=== PATIENT | female | born 1980 | race Caucasian/White ===

== ENCOUNTER 2019-11-12 06:06 | Inpatient (IN) ==
[2019-11-12] MEDS ORDERED: TORADOL IV ONE (06:24)
[2019-11-12 06:47] LABS: URINE SOURCE CLEAN CATCH
[2019-11-12] MEDS ORDERED: ZOFRAN IV ONE (06:51)
[2019-11-12 07:00] LABS: BASO# 0.04 X1000 (0.0-0.2); BASO% 0.2 % (0.0-0.8); EOS# 0.24 X1000 (0.0-0.7); EOS% 1.4 % (0.0-10.0); HEMATOCRIT 39.5 % (37.0-47.0); HEMOGLOBIN 12.9 g/dL (12.0-16.0); IMM GRAN# 0.05 X1000 (0.0-0.04); IMM GRAN% 0.3 % (0.0-0.5); LYMPH# 3.05 X1000 (1.2-3.4); LYMPH% 18.4 % (20.5-51.1); MCH 28.6 PG (27-31); MCHC 32.7 g/dL (33-37); MCV 87.6 FL (81-99); MONO# 1.28 X1000 (0.11-0.59); MONO% 7.7 % (1.7-9.3); MPV 9.7 FL (7.4-10.4); NEUT# 11.93 X1000 (1.4-6.5); PLT 458 X1000 (130-400); RBC 4.51 XMIL (4.2-5.4); RDW 12.6 % (11.5-14.5); WBC 16.59 X1000 (4.8-10.8)
[2019-11-12 07:09] LABS: BILIRUBIN URINE NEGATIVE (NEGATIVE); BLOOD URINE NEGATIVE (NEGATIVE); COLOR YELLOW; GLUCOSE URINE NEGATIVE (NEGATIVE); KETONE URINE NEGATIVE (NEGATIVE); LEUKOCYTES URINE NEGATIVE (NEGATIVE); NITRITE URINE NEGATIVE (NEGATIVE); PROTEIN URINE NEGATIVE (NEGATIVE); SP GRAVITY URINE 1.018; TURBIDITY URINE CLEAR (CLEAR); UR EPITHELIAL CELLS <10 /HPF (<10); URINE BACTERIA NEGATIVE /HPF; URINE RBC <10 /HPF (<10); URINE WBC <10 /HPF (<10); UROBILINOGEN URINE NORMAL (NORMAL)
[2019-11-12 07:10] LABS: AGAP 15; ALBUMIN 4.6 g/dL (3.5-5.0); ALKALINE PHOSPHATASE 88 U/L (32-104); BUN 9 mg/dL (8-22); CALCIUM 9.3 mg/dL (8.8-10.2); CHLORIDE 102 mmol/L (98-107); COSMO 278; CREATININE 0.7 mg/dL (0.5-0.9); ESTIMATED GFR > 60; GLUCOSE 123 mg/dL (70-104); GOT 10 U/L (10-30); GPT 14 U/L (10-36); POTASSIUM 4.4 mmol/L (3.5-5.1); SODIUM 139 mmol/L (136-145); TCO2 22 mmol/L (25-35); TOTAL PROTEIN 7.4 g/dL (6.3-8.3)
[2019-11-12] MEDS ORDERED: MORPHINE IV ONE (07:49)
--- NOTE | 2019-11-12 07:54 | PROVIDER DOCUMENTATION ---
HPI-Abdominal Pain/GI Problem - General Chief Complaint: Flank Pain Stated Complaint: FLANK PAIN RIGHT SIDE Time Seen by Provider: 11/12/19 07:40 Allergies/Adverse Reactions: Patient Allergies Allergy/AdvReac Type Severity Reaction Status Date / Time No Known Allergies Allergy Verified 06/13/18 13:16 Home Medications: Home Medication List Medication Instructions Recorded Confirmed Last Taken Type Oxycodone HCl/Acetaminophen 10 tab PO TID 06/13/18 11/12/19 Unknown History [Oxycodone-Acetaminophen 10-325] Polyethylene Glycol 3350 [Miralax] 17 gm PO DAILY #90 powd.pack 06/13/18 11/12/19 Unknown Rx Tramadol [Ultram] 50 mg PO DAILY 06/13/18 11/12/19 Unknown History Gabapentin 300 mg PO DAILY 11/12/19 11/12/19 Unknown History Tizanidine HCl [Zanaflex] 2 mg PO BID 11/12/19 11/12/19 Unknown History - History of Present Illness-ABD Nature of Presenting Problems: began with a midsternal pain 3 days ago, thought was constipated, took mag citrate, felt some better, had liquid BM. This repeated the next day. Occurred again this am, no relief with mag citrate, felt worse, also had sharp R abd pain. No fever. Has had nausea, no vomiting. Nothig else makes better, worse Review of Systems - Adult - REVIEW OF SYSTEMS - ADULT Constitutional: reports: no symptoms reported Eyes: reports: no symptoms reported Ears, Nose, Mouth & Throat: reports: no symptoms reported Cardiovascular: reports: no symptoms reported Respiratory: reports: no symptoms reported Gastrointestinal: reports: see HPI Genitourinary: reports: see HPI Musculoskeletal: reports: no symptoms reported Integumentary: reports: no symptoms reported Neurological: reports: no symptoms reported Psychiatric: reports: no symptoms reported Endocrine: reports: no symptoms reported Hematologic/Lymphatic: reports: no symptoms reported Allergic/Immunologic: reports: no symptoms reported Past History - Adult - PAST MEDICAL HISTORY-ADULT Review of Records: reports: Medications Reviewed Major Childhood Illnesses: reports: denies history Cardiovascular: reports: denies history Respiratory: reports: denies history Gastrointestinal: reports: denies history Obstetrical/Gynecological: reports: denies history Genitourinary: reports: denies history Musculoskeletal: reports: chronic pain, neck/back injury Neurological: reports: denies history Endocrine/Immune: reports: denies history Other Conditions: reports: denies history - PRIOR SURGERIES/PROCEDURES Surgical/Procedure History: reports: , other (nerve block) - IMMUNIZATION STATUS Childhood Immunizations: See Nurse Assessment Flu Vaccine: See Nurse Assessment - FAMILY HISTORY Family History: reviewed, not pertinent Physical Exam-General - PHYSICAL EXAM-ADULT Initial Vital Signs Reviewed: Yes - CONSTITUTIONAL General Appearance: alert, moderate distress - EYES Eyes: PERRL/EOMI, pink conjunctivae - HEAD, EARS, NOSE, MOUTH & THROAT HENMT: normocephalic/atraumatic, moist mucous membranes, normal ENT inspection, pharynx normal - NECK Neck: non-tender, full range of motion, supple, normal inspection - RESPIRATORY Respiratory: chest non-tender, lungs clear, normal breath sounds, no pleuratic chest pain, no respiratory distress, no accessory muscle use - CARDIOVASCULAR Cardiovascular: regular rate, rhythm, no edema, no gallop, no murmur - GASTROINTESTINAL (ABDOMEN) Abdominal Exam: soft, tenderness (sv to epigastrum, mod to RUQ. BS are hyperactive) - MUSCULOSKELETAL Back Exam: normal inspection, no CVA tenderness, no vertebral tenderness Extremity: normal range of motion, non-tender, normal gait, normal inspection, no pedal edema - SKIN Integumentary: normal color, normal turgor, warm/dry - NEUROLOGIC Neurologic: postal delivery officer II-XII nml as tested, grossly normal, no motor/sensory deficits - PSYCHIATRIC Psych/Mental Status: normal mood/affect, normal thought content, normal thought process, oriented x 3 Progress - PLAN OF CARE/RESULTS Progress/Plan/Lab Results: Vital Signs - 8 hr 11/12/19 06:12 Temperature 97.6 F Pulse Rate 86 Respiratory Rate 20 Blood Pressure 127/84 O2 Sat by Pulse Oximetry 97 Bedside Urine ED: Urine Bedside Start: 11/12/19 06:10 Freq: NOW Status: Active Protocol: Activity Type Activity Date Activity User E-Sign Co-Sign Detail Recorded Client Recorded Date Recorded By Document 11/12/19 06:41 [id number] 11/12/19 06:42 [id number] 11/12/19 06:41 Point of Care [Bedside Point of Care] -Lot # [id number] - Results Negative -Control Line Visible? Yes Laboratory Results - last 24 hr 11/12/19 11/12/19 11/12/19 06:26 06:39 06:39 WBC 16.59 H RBC 4.51 Hgb 12.9 Hct 39.5 MCV 87.6 MCH 28.6 MCHC 32.7 L RDW Std Deviation 12.6 Plt Count 458 H MPV 9.7 Immature Gran % (Auto) 0.3 Neut % (Auto) 72.0 Lymph % (Auto) 18.4 L Casey % (Auto) 7.7 Eos % (Auto) 1.4 Baso % (Auto) 0.2 Immature Gran # (Auto) 0.05 H Neut # (Auto) 11.93 H Lymph # (Auto) 3.05 Casey # (Auto) 1.28 H Eos # (Auto) 0.24 Baso # (Auto) 0.04 Sodium 139 Potassium 4.4 Chloride 102 Carbon Dioxide 22 L Anion Gap 15 BUN 9 Creatinine 0.7 Estimated GFR/1.73 m2 > 60 BUN/Creatinine Ratio 13 Glucose 123 H Calculated Osmolality 278 Calcium 9.3 Total Bilirubin 0.40 AST 10 ALT 14 Alkaline Phosphatase 88 Total Protein 7.4 Albumin 4.6 Globulin 3.0 Albumin/Globulin Ratio 2.0 Urine Source CLEAN CATCH Urine Color YELLOW Urine Turbidity CLEAR Urine pH 7.0 Ur Specific [place] 1.018 Urine Protein NEGATIVE Ur Glucose (Stick) NEGATIVE Ur Ketones (Stick) NEGATIVE Urine Blood NEGATIVE Urine Nitrite NEGATIVE Urine Bilirubin NEGATIVE Urobilinogen Dipstick NORMAL Urine Leukocytes NEGATIVE Urine WBC (Auto) <10 Urine RBC (Auto) <10 U Epithel Cells (Auto) <10 Urine Bacteria (Auto) NEGATIVE Orders Category Date Time Status Urine Preg [ED: Urine Bedside] NOW Care 11/12/19 06:[address] ABD/PELVIS W/IV CONT ONLY [CT] Stat Exams 11/12/19 07:48 Ordered flat [FLAT/UPRIGHT ABD/1 VIEW CHEST] [RAD] Stat Exams 11/12/19 07:44 Ordered AMYLASE [CHEM] Stat Lab 11/12/19 07:48 Uncollected CBC WITH ELECTRONIC DIFF [HEME] Stat Lab 11/12/19 06:39 Completed CMP [COMPREHENSIVE METABOLIC PANEL] [CHEM] Stat Lab 11/12/19 06:39 Completed LIPASE [CHEM] Stat Lab 11/12/19 07:48 Uncollected URINALYSIS W/POSS RFLX CULT [URINALYSIS] Stat Lab 11/12/19 06:26 Completed Ketorolac [Toradol] Med 11/12/19 06:24 Discontinued 30 mg IV NOW ONE Morphine Med 11/12/19 07:49 Once 4 mg IV NOW ONE Ondansetron [Zofran] Med 11/12/19 06:51 Discontinued 4 mg IV NOW ONE Result Diagrams: 11/12/19 06:39 11/12/19 06:39 - CONSULTS/PCP/HOSPITALIST Notification #1 *Consult/PCP/Hospitalist*: Hayder Time Discussed: 09:30 (was told that he was in surgery, could not call back until afternoon. Then was told would put a note where he might see it between cases. Video Game Designer called, said all she could do was tell him between ca ses) #2 Consult: Hayder Time Discussed: 11:40 Consult Disposition: Admit Departure - Departure Date of Disposition Decision: 11/12/19 Time of Disposition Decision: 09:35 DIAGNOSIS: Acute cholecystitis Disposition: ADMITTED INPATIENT 09 Certified Medical Emergency: Emergent Condition: Good Additional Instructions: ED Follow Up Instructions: You have been treated by a care provider in the Emergency Department. These instructions are being provided to you so you can have an understanding of how to care for yourself upon discharge. Upon discharge from the Emergency Department, you are responsible for making arrangements for follow-up care by a physician of your choice. Take all prescribed medications as directed. Return to the Emergency Department immediately for any new or worsening symptoms. You may call the Physician Referral phone number at [phone] to obtain a list of Physicians who are taking new patients. Referrals and Follow-Ups: Megan Lemus MD [Primary Care Provider] - - Critical Care Note This patient required my direct & personal management of CC.: No Attestation - Physician/ KEITH Attestation Patient care was provided by Advanced Practice Provider:: No The physician spent face to face time with patient:: Yes Advanced Practice Provider documentation review:: Supervising physician onsite and consulted in the evaluation and care of this patient. The physician did have a face to face encounter with the patient.
[2019-11-12 08:11] LABS: AMYLASE 42 U/L (20-200); LIPASE 20 U/L (13-60)
--- NOTE | 2019-11-12 09:05 | Diag Imaging Result Doc PS360 ---
EXAM: CT ABD/PELVIS W/IV CONT ONLY HISTORY: epigastric pain TECHNIQUE: This exam was performed using automated exposure control, adjustment of mA or kV according to patient size, and/or use of iterative reconstruction technique. COMPARISON: None. FINDINGS: Lung bases: Unremarkable. Hepatobiliary: There is gallbladder wall thickening and/or pericholecystic inflammatory change suspicious for cholecystitis. Gallbladder ultrasound recommended. Normal liver attenuation. No intrahepatic or extrahepatic biliary ductal dilatation is identified.. There is an enlarged right lobe of the liver versus a Tory's lobe, normal variant, measuring 24 cm craniocaudad dimension . No suspicious masses are appreciated. Pancreas/Adrenal glands/Spleen: Normal size and enhancement. No cysts or solid masses are appreciated. Kidneys: No nephrolithiasis or hydronephrosis is appreciated. Normal bilateral enhancement. No suspicious masses. Retroperitoneum: Normal caliber aorta. No lymphadenopathy. Bowel/Mesentery: Normal caliber small and large bowel loops. No evidence for obstruction. . No mesenteric lymphadenopathy is appreciated. Appendix: Normal. No evidence for acute appendicitis. Pelvis: Reproductive organs show no acute abnormality. Urinary bladder is unremarkable. No acute bony abnormality is demonstrated. IMPRESSION: Gallbladder wall thickening and/or pericholecystic fluid. Suspect cholecystitis. Recommend gallbladder ultrasound. Hepatomegaly versus prominent Tory's lobe of the liver. Electronically signed by Ivette Martínez 11/12/2019 9:03 AM
[2019-11-12] MEDS ORDERED: ZOSYN 3.375 GM in NS 50 ML IV ONE (09:35)
[2019-11-12] MEDS ORDERED: SENSORCAINE 0.5%-EPI 1:200,000 ONE (14:37)
[2019-11-12] MEDS ORDERED: LR 1,000 ML ONE ×2 (14:37→18:29)
[2019-11-12] MEDS ORDERED: SODIUM CHLORIDE 0.9% ONE (14:37)
--- NOTE | 2019-11-12 15:42 | HISTORY AND PHYSICAL ---
HISTORY OF PRESENT ILLNESS: Ms Melina Miller is a 38-year-old white female who has a three-day history of epigastric and right upper quadrant pain. She presented to [facility] Emergency Department today with these symptoms and a CT scan was performed which suggested acute cholecystitis, as did her exam. She was transferred from [facility] to [facility] for further treatment. PAST MEDICAL HISTORY: She has had three C sections. She has had a tubal ligation. She has chronic lower back and right hip pain. MEDICATIONS: She is on opioids for chronic back and hip pain. ALLERGIES: No known drug allergies. SOCIAL HISTORY: She works at [email or web address]. FAMILY HISTORY: Family history was reviewed and was noncontributory. REVIEW OF SYSTEMS: A 14-point review of systems was performed and was essentially negative except for the History of Present Illness. PHYSICAL EXAMINATION: GENERAL: Ms. Miller is a middle-aged white female with tattoos. She is in no acute distress but has obvious abdominal discomfort. HEENT: She has no jaundice. No oral lesions. NECK: No cervical or supraclavicular lymphadenopathy. HEART: Has regular rate. LUNGS: Clear. There is no work of breathing. ABDOMEN: Soft. She had no evidence of hernia. She was tender in the right upper quadrant. I could not palpate her gallbladder. She had no costovertebral tenderness. RECTAL AND VAGINAL: Exams were not performed. EXTREMITIES: She does have palpable peripheral pulses. No peripheral edema. NEUROLOGIC: She is alert and oriented x3 and appropriate. IMAGING: A CT scan was reviewed and has inflammation around her gallbladder. It was felt that she had acute cholecystitis. IMPRESSION: Acute cholecystitis. PLAN: Laparoscopic, possible open cholecystectomy, this afternoon. I have discussed the procedure in detail with her at the bedside including risks of bleeding, infection, injury to the extrahepatic bile ducts requiring reoperation, conversion of laparoscopic to open cholecystectomy, bile leak requiring reoperation for drainage, and injury to intra-abdominal contents for trocar placement. She understands the need for surgery and its risks and she wants to proceed. cc: Kiley Singletary MD
[2019-11-12] MEDS ORDERED: DIPRIVAN 1% ONE ×2 (15:58)
[2019-11-12] MEDS ORDERED: XYLOCAINE-MPF 2% ONE ×4 (15:58→16:02)
[2019-11-12] MEDS ORDERED: ZEMURON ONE ×4 (15:59→16:02)
[2019-11-12] MEDS ORDERED: QUELICIN (DOSE) ONE ×2 (15:59)
[2019-11-12] MEDS ORDERED: VERSED ONE ×2 (16:05)
[2019-11-12] MEDS ORDERED: KEFZOL 1 GM/D5W 2 GM/100 ML IVPB ONE (16:38)
[2019-11-12] MEDS ORDERED: FENTANYL ONE (16:53)
[2019-11-12] MEDS ORDERED: ZOFRAN ONE (17:17)
[2019-11-12] MEDS ORDERED: DECADRON ONE (17:17)
[2019-11-12] MEDS ORDERED: BRIDION ONE (17:36)
[2019-11-12] MEDS ORDERED: TORADOL ONE (17:40)
[2019-11-12] MEDS ORDERED: ROBINUL ONE (17:55)
[2019-11-12] MEDS ORDERED: NEOSTIGMINE ONE (17:55)
--- NOTE | 2019-11-12 17:59 | Diag Imaging Result Doc PS360 ---
EXAM: OPERATIVE CHOLANGIOGRAM 11/12/2019 HISTORY: CHOLECYSTITIS TECHNIQUE: Intraoperative cholangiogram COMMENT: The intra and extrahepatic bile ducts appear distended. Contrast is seen entering the duodenum. There may be a filling defect at the confluence of the left and right ducts just above the cystic duct. IMPRESSION: Stone versus air bubble in the common hepatic duct distally. No evidence of obstruction of the common bile duct. Electronically signed by Lobito Alaniz 11/12/2019 5:57 PM
[2019-11-12] MEDS: DILAUDID ONE ×2 (18:29→18:32)
[2019-11-12] MEDS ORDERED: NORCO-10 PO PRN (19:55)
[2019-11-12] MEDS ORDERED: PHENERGAN IV PRN (19:56)
[2019-11-12] MEDS ORDERED: SODIUM CHLORIDE 0.9% INJ PRN (20:00)
--- NOTE | 2019-11-12 20:22 | OPERATIVE NOTE ---
PROCEDURE DATE: 11/12/2019 PREOPERATIVE DIAGNOSIS: Acute cholecystitis with cholelithiasis. POSTOPERATIVE DIAGNOSIS: Acute cholecystitis with cholelithiasis. PRINCIPAL PROCEDURE: Laparoscopic cholecystectomy with intraoperative cholangiogram. SURGEON: Kiley Singletary MD. ANESTHESIA: General. ESTIMATED BLOOD LOSS: 75 to 100 mL. DRAINS: None. INDICATIONS: Ms. Melina Miller is a 38-year-old white female who initially presented to [facility] with a 3-day history of epigastric and right upper quadrant pain. A CT scan suggested acute cholecystitis as did her exam and cholecystectomy was recommended. FINDINGS: The gallbladder was tightly distended and inflamed. It had black bile within it. The liver appeared to be healthy. We did do an intraoperative cholangiogram, which showed some dilatation of the extrahepatic bile ducts but there was no evidence of extrahepatic stone and the dye went into the duodenum easily. No other intraabdominal pathology was noted. We felt we did the operation safely. DESCRIPTION OF PROCEDURE: The patient was brought to the operating room, placed supine, received general anesthesia, was intubated. Her abdomen was prepped and draped within a sterile field. She received Ancef prophylactically. I began the procedure by making a small incision below the umbilicus. Veress needle was introduced through this incision into the abdomen. Pneumoperitoneum was established. The Veress needle was removed. I placed a 11 mm trocar through this incision into the abdomen. The camera was placed through this port and the abdomen was explored for injury, there was none. Three other trocars were placed along the right costal margin under direct vision the camera. I placed a 11 mm trocar just to the right of the midline and two 5 mm trocars in our midclavicular and anterior axillary lines. Initially, we had to decompress the gallbladder using a needle and suction. I then used a grasper with teeth to grab the fundus of the gallbladder and retract it superiorly along with the right lobe of the liver. Another grasper was used to grab the body of the gallbladder and the triangle of Calot was bluntly dissected. As we worked around the infundibulum we came across a branch of the artery initially. A clip was placed distally, 2 proximally. It was divided using hook scissors. We then identified the cystic duct along its length. I placed a clip at the cystic duct gallbladder junction. I made a small incision in the cystic duct using hook scissors and a Taut intraoperative cholangiogram catheter was used to perform the cholangiogram with findings above. Once cholangiogram was completed, I removed the catheter and 2 clips were placed proximally on the cystic duct and I divided the cystic duct between clamps using hook scissors. There was another artery identified and I placed a clip distally, 2 proximally. It was divided using hook scissors. The spatula cautery was used to remove the gallbladder from the liver bed. We used an endobag to remove the gallbladder through our umbilical incision. We placed the trocar back through this incision and the area of operation was thoroughly inspected, irrigated, and the irrigation was removed with suction. There was some bleeding from the liver bed. I placed Surgicel in the liver bed to help control this bleeding. Again we irrigated. The irrigation was removed with suction. We decided against leaving any drains. We felt we did the operation safely. We did not recognize any other intraabdominal pathology. All trocars removed under direct vision the camera. The pneumoperitoneum was allowed to dissipate. I used [id number] 2-0 Vicryl stitches to reapproximate the fascia below the umbilicus and all skin was closed with 4-0 Monocryl subcuticular stitches. Steri-Strips were applied. She tolerated the procedure well with plans for her to go to the recovery room and then be readmitted to the floor. cc: Kiley Singletary MD
[2019-11-12] MEDS: TYLENOL PO SCH (21:03)
[2019-11-12] MEDS: LR 1,000 ML IV SCH (21:04)
[2019-11-12] MEDS: MOTRIN PO SCH (23:15)
[2019-11-13] MEDS: TYLENOL PO SCH ×3 (04:36→14:17)
[2019-11-13] MEDS: LR 1,000 ML IV SCH (06:43)
[2019-11-13] MEDS: MOTRIN PO SCH ×2 (06:43→06:45)
[2019-11-13 11:50] VITALS: BP 114/62
--- NOTE | 2019-11-13 16:33 | DISCHARGE SUMMARY ---
ADMISSION DATE: 11/12/2019 DISCHARGE DATE: 11/13/2019 ADMITTING DIAGNOSIS: Acute cholecystitis. DISCHARGE DIAGNOSIS: Acute cholecystitis. PRINCIPAL PROCEDURES: Laparoscopic cholecystectomy with intraoperative cholangiogram on 11/12/2019. DISCHARGE DISABILITY: Full. DISCHARGE DIET: Regular. DISCHARGE DISPOSITION: She will return to my outpatient office in 7 to 10 days. DISCHARGE MEDICATIONS: She is to return to her home medications. HOSPITAL COURSE: Miss Melina Miller is a 38-year-old white female who had a several day history of epigastric and right upper quadrant pain. She presented to [facility] Emergency Department. A CT scan was performed which suggested inflammation around her gallbladder consistent with acute cholecystitis and she had ongoing symptoms and an elevated white blood cell count. She was transferred from [facility] to [facility] for further surgical care. Yesterday she went to the operating room and underwent a laparoscopic cholecystectomy for acute cholecystitis. We did do an intraoperative cholangiogram at the time of surgery which we felt was normal. We felt we did this operation safely. No drains were left at the time of surgery. She went to the recovery room and then was hospitalized on the [address] [place] [address] [place]. On postop day 1 she was tolerating liquids. She was able to ambulate easily in the [place], clinically she felt much better, her trocar sites were intact, and it was felt safe to discharge her home under the care of her family with followup in our outpatient office in 7 to 10 days. At discharge her heart rate was 79, blood pressure 114/62, O2 saturation 93%, and her T-max was 99 degrees. She knows to contact me with any problems such as increasing abdominal pain, distention, or fever. cc: Kiley Singletary MD
== END 2019-11-13 14:22 | disposition home or self-care (01) ==
LOC: P.ED 06:06 → 4N 11:56
PROVIDERS: ADMIT Surgery; ATTEND Surgery